=== PATIENT | male | born 1980 | race American Indian/Alaskan Native ===

== ENCOUNTER 2021-12-31 14:45 | Emergency (ER) | payer SELFPAY ==
[2021-12-31 15:12] VITALS: BP 117/78
--- NOTE | 2022-01-01 10:25 | Electrocardiograph Report ---
[facility] Test Date: 2021-12-31 Test Time: 15:15:50 Pat Name: MUSTAPHA FLORES Department: Room: Gender: M Printer Apprentice: MUSTAPHA : 1980 Requested By: KARINA COPELAND Order Number: [id number] Reading MD: Audi Dalal Measurements Intervals [place] Rate: 56 P: 50 DE: 205 QRS: 56 QRSD: 82 T: 40 QT: 375 QTc: 362 Interpretive Statements Sinus rhythm Borderline prolonged DE interval No previous ECG available for comparison Electronically Signed On 01-01-2022 10:25:13 EDT by Audi Dalal
== END 2022-01-01 12:35 | disposition left against medical advice (07) ==
LOC: ED 14:45
DX: R07.89 Other chest pain (principal); Z53.21 Procedure and treatment not carried out due to patient leaving prior to being seen by health care provider
CPT/HCPCS: 93005